=== PATIENT | female | born 1935 | race Caucasian/White ===

== ENCOUNTER → 2018-02-04 15:11 | Outpatient (POV) | payer MEDICARE, SELFPAY | PROVIDERS: Family Provider Internal Medicine Nephrology; Visit Provider Internal Medicine Nephrology | DX: Z00.00 Encounter for general adult medical examination without abnormal findings (principal) ==

== ENCOUNTER → 2018-06-10 11:42 | Outpatient (POV) | payer MEDICARE, SELFPAY | PROVIDERS: Visit Provider Internal Medicine Nephrology | DX: Z00.00 Encounter for general adult medical examination without abnormal findings (principal) ==

== ENCOUNTER → 2019-03-05 14:03 | Outpatient (POV) | payer MEDICARE, SELFPAY | PROVIDERS: Visit Provider Internal Medicine Nephrology | DX: Z00.00 Encounter for general adult medical examination without abnormal findings (principal) ==